=== PATIENT | female | born 1980 | race Caucasian/White ===

== ENCOUNTER 2018-02-18 02:49 | Observation (INO) | payer BC ==
[~2018-02-18] VITALS: Ht 160 cm; Wt 77.5 kg
[~2018-02-18 02:49] MED LIST: CLONAZEPAM0.5 MG PO; EFFEXOR XR37.5 MG PO; EFFEXOR75 MG PO; ENDOCET 5-3251 EACH PO; KLONOPIN0.5 M1 PO; LOMOTIL TABLET1 EACH PO; Motrin PO; NORCO 5/3251 TABLET PO; PEPCID20 MG PO; PROPRANOLOL HCL40 MG PO; PROPRANOLOL HCL60 M1 PO; VENLAFAXINE H37.5 MG PO; VICODIN 5-3001 EACH PO; XARELTO15 MG PO; ZOFRAN8 MG PO
[2018-02-18 03:19] LABS: BASOPHIL (%) 0.4 % (0-1); EOSINOPHIL (%) 1.9 % (0-5); EOSINOPHIL COUNT 0.2 K/uL (0-0.3); HEMATOCRIT 41.9 % (36.0-46.0); HEMOGLOBIN 14.1 G/DL (11.9-15.5); IMMATURE GRANULOCYTE (%) 0.2 % (0.0-0.7); LYMPHOCYTE (%) 37.9 % (15-42); LYMPHOCYTE COUNT 3.8 K/uL (1.0-2.8); MCH 29.4 PG (29.0-34.0); MCHC 33.7 G/DL (30.0-36.0); MCV 87.5 FL (83-99); MONOCYTE (%) 8.9 % (3-12); MONOCYTE COUNT 0.9 K/uL (0-0.8); NEUTROPHIL (%) 50.7 % (45-76); NEUTROPHIL COUNT 5.2 K/uL (1.8-6.4); PLATELET COUNT 237 K/uL (156-360); RBC DIS.WIDTH-CV 12.2 % (11.8-14.6); RED BLOOD COUNT 4.79 M/uL (3.80-5.20); WHITE BLOOD COUNT 10.1 K/uL (4.1-10.2)
[2018-02-18 03:30] LABS: CHLORIDE 104 mEq/L (99-109); POTASSIUM 3.5 mEq/L (3.7-5.4); SODIUM 140 mEq/L (136-147)
[2018-02-18 03:31] LABS: GLUCOSE 102 mg/dL (70-99)
[2018-02-18 03:35] LABS: CREATININE 0.8 mg/dL (0.6-1.3); GFR ESTIMATE (CALCULATED) > 59 mL/min/
[2018-02-18 03:36] LABS: UREA NITROGEN (BUN) 14 mg/dL (9-23)
[2018-02-18 03:48] LABS: PTT 30.8 SEC (25-37)
[2018-02-18 06:42] VITALS: BP 126/75
[2018-02-18 06:54] LABS: HDL CHOLESTEROL 47 MG/DL (Desirable>=50); LDL CHOLESTEROL 109 mg/dL (Desirable<100); NON-HDL CHOLESTEROL 129 mg/dL (Desirable<160); TOTAL CHOLESTEROL 176 mg/dL (Desirable<200); TRIGLYCERIDES 100 MG/DL (Normal: <150)
[2018-02-18 07:37] LABS: THYROTROPIN (TSH) 8.3 MIU/L (0.4-5.5)
[2018-02-18 08:00] VITALS: BP 149/63
[2018-02-18 08:36] LABS: FOLIC ACID (FOLATE) 11.8 NG/ML (5.0-22.0)
[2018-02-18 09:23] LABS: HEMOGLOBIN A1c (GLYCOHEMOGLOB) 5.3 % (Below 5.7)
[2018-02-18 12:02] VITALS: BP 137/81
== END 2018-02-18 13:00 | disposition home or self-care (01) ==
LOC: EME 02:49 → EDOF 05:40 → 4SOUTH 06:18
PROVIDERS: Emergency Medicine; Hospitalist; Physician Assistant
DX: R20.2 Paresthesia of skin (principal); E05.00 Thyrotoxicosis with diffuse goiter without thyrotoxic crisis or storm; F41.9 Anxiety disorder, unspecified; Z86.711 Personal history of pulmonary embolism; H92.09 Otalgia, unspecified ear; R51 Headache; Z83.49 Family history of other endocrine, nutritional and metabolic diseases; Z82.0 Family history of epilepsy and other diseases of the nervous system; Z82.49 Family history of ischemic heart disease and other diseases of the circulatory system; Z88.1 Allergy status to other antibiotic agents
CPT/HCPCS: 70450; 70551; 80048; 80061; 82607; 82746; 83036; 84443; 85025; 85610; 85730; 93880; 99281; 99284; G0378; J1650